=== PATIENT | female | born 1940 | race Caucasian/White ===

== ENCOUNTER 2020-08-02 09:06 | Outpatient (REF) | payer MEDICARE, SELFPAY ==
--- NOTE | ~2020-08-02 | US_ITS ---
EXAMINATION: US ABDOMEN COMPLETE CLINICAL INFORMATION: Progressive right upper quadrant pain and tenderness to palpation. COMPARISON: None. TECHNIQUE: Real-time imaging of the abdominal viscera. FINDINGS: PANCREAS: Slightly thickened pancreas without focal lesion seen. The pancreas slightly heterogenous. ABDOMINAL AORTA: The proximal, mid, and distal segments are normal in caliber. INFERIOR VENA CAVA: Visualized portions are normal. LIVER: There are echogenic lesion in the right hepatic lobe measuring 2.1 x 2.0 x 2.1 cm suggestive of hemangioma. A second echogenic areas seen in the left hepatic lobe measuring 1.4 x 1.0 x 1.0 cm suggestive of a second hemangioma. There is an echogenic calcification the right hepatic lobe. The liver is normal in size. The liver contour is normal. Parenchymal echogenicity is normal. There is no intrahepatic biliary duct dilatation seen. GALLBLADDER: Surgically absent. COMMON BILE DUCT: Normal in caliber measuring 0.82 cm in diameter. RIGHT KIDNEY: There is solid lesion in the upper pole of right kidney measuring 2.7 x 2.2 x 2.0 cm nonvascular question adenoma. No hydronephrosis or renal calculi. The kidney measures 10.1 cm in maximum dimension. LEFT KIDNEY: There is anechoic cyst in upper/midpole measuring 2.1 x 2.4 x 2.1 cm. No additional lesions seen. No hydronephrosis or renal calculi. The kidney measures 10.4 cm in maximum dimension. SPLEEN: The spleen measures 12.2 cm in maximum dimension. FREE FLUID: None. US/US abdomen complete IMPRESSION: At least 2 hemangiomas in the liver. Bilateral renal cysts. Likely right adrenal 2.7 cm adenoma along the superior pole of right kidney. Heterogenous pancreas is mildly enlarged. The rest of the abdominal ultrasound is unremarkable.
== END 2020-08-02 09:07 | disposition home or self-care (01) ==
LOC: HO.HMGCX 09:06
PROVIDERS: PCP Internal Medicine; Visit Provider Internal Medicine
DX: R10.811 Right upper quadrant abdominal tenderness (principal)
CPT/HCPCS: 76700

== ENCOUNTER 2021-09-05 16:37 | Outpatient (REF) | payer OTHER, SELFPAY ==
--- NOTE | ~2021-09-05 | XR_ITS ---
EXAMINATION: XR BILATERAL KNEES. CLINICAL INFORMATION: Bilateral knee pain. COMPARISON: None. TECHNIQUE: 4 views each knee. FINDINGS: RIGHT KNEE: There is mild loss of tricompartmental joint space with periarticular spurring in the medial and patellofemoral compartments. No bony erosive changes seen. There is no abnormal joint effusion or loose bodies. The soft tissues are normal. LEFT KNEE: There is mild loss of medial and lateral compartment joint space with moderate periarticular spurring in the lateral and patellofemoral compartments. No acute fracture, loose bodies or soft tissue swelling is seen. XR/XR knee RT 2V IMPRESSION: Degenerative arthritic changes in the tricompartments of both knees without any acute fracture, loose bodies or joint effusion.
--- NOTE | ~2021-09-05 | XR_ITS ---
EXAMINATION: XR BILATERAL KNEES. CLINICAL INFORMATION: Bilateral knee pain. COMPARISON: None. TECHNIQUE: 4 views each knee. FINDINGS: RIGHT KNEE: There is mild loss of tricompartmental joint space with periarticular spurring in the medial and patellofemoral compartments. No bony erosive changes seen. There is no abnormal joint effusion or loose bodies. The soft tissues are normal. LEFT KNEE: There is mild loss of medial and lateral compartment joint space with moderate periarticular spurring in the lateral and patellofemoral compartments. No acute fracture, loose bodies or soft tissue swelling is seen. XR/XR knee LT 2V IMPRESSION: Degenerative arthritic changes in the tricompartments of both knees without any acute fracture, loose bodies or joint effusion.
== END 2021-09-05 16:38 | disposition home or self-care (01) ==
LOC: HO.XRAY 16:37
PROVIDERS: PCP Internal Medicine; Visit Provider Psychiatry & Neurology Neurology
DX: M25.561 Pain in right knee (principal); M25.562 Pain in left knee
CPT/HCPCS: 73560

== ENCOUNTER → 2024-03-25 16:35 | Outpatient (BNV) | payer OTHER, SELFPAY | PROVIDERS: PCP Internal Medicine; Visit Provider Radiology Diagnostic Radiology | DX: K59.00 Constipation, unspecified (principal); R10.9 Unspecified abdominal pain | CPT/HCPCS: 71046; 74018 ==

== ENCOUNTER 2025-02-24 10:51 | Outpatient (AMB) | payer OTHER, MEDICAID, SELFPAY ==
--- NOTE | 2025-02-24 11:09 | MHC.OFFVIS ---
Intake Visit Reasons: 6 MONTH F/U HPI Comments Details: 84 y/o woman with fibromyalgia syndrome, left sided facial pain, arthritis, depression, RLS, and peripheral neuropathy. She is presenting for worsening left-sided facial pain. The pain is significant enough that it affects activities such as washing her face. She was previously treated with gabapentin, which was discontinued due to causing ankle swelling. The patient also has a history of severe sleep apnea, confirmed by a recent overnight sleep study. She struggles with insomnia, often remaining awake until 3:00 a.m. or through the entire night, and has difficulty using a CPAP mask. Her other chronic conditions include restless leg syndrome, treated with ropinirole, and generalized body pain, managed with duloxetine. She has a past history of depression for which she is not currently medicated. Review of Systems Narrative - Neurological: Reports left-sided facial pain, which is worse when washing her face. - Reports restless leg syndrome. - Musculoskeletal: Reports generalized body pain. - Psychiatric: Reports significant insomnia, having a hard time sleeping and sometimes staying awake all night. - Allergic/Immunologic: Reports ankle swelling with previous use of gabapentin. Physical Exam Neuro Other: Mental Status: Alert and oriented to person, place, and time. Normal attention. Normal spontaneous speech, fluency, and comprehension. Cranial Nerves: CN II: Visual obregon full to confrontation, visual acuity intact. CN III, IV, : Pupils equal, round, reactive to light and accommodation. Extraocular movements are normal. CN V: Facial sensation is normal. CN VII: Facial movements symmetrical. CN VIII: Hearing intact to bedside conversation is normal. CN IX, X: Palate elevates symmetrically. CN XI: Shoulder shrug and head turn symmetrical. CN XII: Tongue midline without atrophy or fasciculations. Extrapyramidal: Full facial expressions and blinking. No rigidity. Movements are appropriate with no tremor or abnormality. Speech: Normal; no dysarthria or tremor. Assessment & Plan Assessment & Plan (1) Fibromyalgia: Comment: NCV/EMG RT UE: Mild chronic right mid cervical radiculopathy. NCV/EMG LE 04/26/15 MODERATE TO SEVERE AXONAL PERIPHERAL NEUROPATHY. Code(s): M79.7 - Fibromyalgia Category: Medical (2) RLS (restless legs syndrome): Code(s): G25.81 - Restless legs syndrome Category: Medical (3) Insomnia: Code(s): G47.00 - Insomnia, unspecified Category: Medical Qualifiers: Insomnia type: due to medical condition Qualified Code(s): G47.01 - Insomnia due to medical condition (4) Trigeminal neuralgia of left side of face: Code(s): G50.0 - Trigeminal neuralgia Category: Medical Plan Impression: 1. Fibromyalgia 2. Left trigeminal neuralgia 3. Peripheral neuropathy and associated discomfort 4. Restless legs syndrome 5. Chronic insomnia 6. Depression 7. TATIANA Recommendations: 1. Duloxetine 30 mg 1 twice a day for fibromyalgia 2. Oxcarbazepine 150 mg 1-2 a day for facial pain 3. Ropinirole 0.25 mg 1 at bedtime for RLS 4. Mirtazapine 15 mg 1 at bedtime for Insomnia 5. TATIANA was treated at [facility] I have prescribed oxcarbazepine for the patient's facial pain. I advised her to start with one tablet at night and explained that the dose can be increased to twice daily if her pain does not improve. I counseled her and her caregiver that a potential side effect of this new medication is dizziness. We reviewed her current medications, and I confirmed we will continue duloxetine for body pain, ropinirole for restless leg syndrome, and mirtazapine for sleep. I informed them that I sent 6-month refills for these medications to [facility] pharmacy. Medications: New ropinirole administer 1-3 hours before bedtime 0.25 mg PO BEDTIME 90 tabs 1RF oxcarbazepine 150 mg PO BID 180 tabs 1RF mirtazapine 15 mg PO BEDTIME 90 tabs 1RF Refilled duloxetine 20 mg PO BID 180 caps 1RF Discontinued gabapentin Discontinued Reason: Entered in error 300 mg orally once or twice a day as needed; 180 caps 0RF Coding Level of Care Code Est Pt Level 4 (60990) Diagnoses Fibromyalgia M79.7 RLS (restless legs syndrome) G25.81 Insomnia due to medical condition G47.01 Insomnia type: due to medical condition Trigeminal neuralgia of left side of face G50.0
--- OUTSIDE RECORDS SUMMARY | 2025-02-24 14:43 | XMS_ITS | Clinical Summary ---
Author Organization [facility] Address [address] [place] [id number] Phone Care Team Providers Care Undercover Agent Name Role Phone VietkatyaanirudhBlayne rausch Primary Care Provider Allergies No known active allergies Medications venlafaxine (EFFEXOR-XR) 150 MG 24 hr capsule Take 150 mg by mouth daily. 04/01/2021 Active rOPINIRole (REQUIP) 0.25 MG tablet Take 0.25 mg by mouth nightly at bedtime as needed. 01/19/2021 Active polyethylene glycol (MIRALAX) 17 gram/dose powder Take 17 g by mouth daily. 03/20/2021 Active omeprazole (PRILOSEC) 20 MG capsule Take 20 mg by mouth 2 (two) times a day. 04/01/2021 Active meloxicam (MOBIC) 15 MG tablet Take 15 mg by mouth daily. 01/25/2021 Active LINZESS 72 mcg capsule Take 72 mcg by mouth daily. 01/27/2021 Active levothyroxine (SYNTHROID, LEVOTHROID) 100 MCG tablet Take 100 mcg by mouth daily. 02/27/2021 Active ergocalciferol (DRISDOL) 50,000 unit capsule Take 1 capsule by mouth once a week. 03/06/2021 Active RESTASIS 0.05 % suspension Place 1 drop into each eye 2 (two) times a day. 01/13/2021 Active calcium citrate-vitamin D3 315 mg-6.25 mcg (250 unit) per tablet Take 1 tablet by mouth 2 (two) times a day. 03/14/2021 Active multivit-min/ir on/folic/lutein (MULTIVITAMIN WOMEN 50 PLUS ORAL) Take 1 capsule by mouth daily. 01/10/2021 Active sodium chloride 0.9% SolP 110 mL with zoledronic acid 4 mg/5 mL Soln 5 mgIndications:f irst reclast infusion on 09/18/23 Inject 5 mg into the vein Once a year. Indications: first reclast infusion on 09/18/23 09/18/2023 Active Active Problems Problem Noted Date Diagnosed Date Osteoporosis 02/21/2021 Social History Tobacco Use Types Packs/Day Years Used Date Smoking Tobacco: Never Smokeless Tobacco: Never Alcohol Use Standard Drinks/Week Comments Never 0 (1 standard drink = 0.6 oz pur e alcohol) Education Answer Date Recorded Are you interested in more education? Not on stefan e 06/24/2022 Are you concerned about learning? Not on file 06/24/2022 No 06/24/2022 No 06/24/2022 Digital Access Answer Date Recorded No 07/25/2022 No 07/25/2022 Reliable internet access at home? Not on file 07/25/2022 Device with a working camera? Not on file Comments Unknown Sex and Gender Information Value Date Recorded Sex Assigned at Not on file Legal Sex Female 1:21 PM EST Gender Identity Not on file Sexual Orientation Not on file Last Filed Vital Signs Vital Sign Reading Time Taken Comments Blood Pressure 112/70 09/18/2023 12:45 PM EDT Pulse 73 09/18/2023 12:45 PM EDT Temperature 36.1 C (96.9 F) 09/18/2023 11:40 AM EDT Respiratory Rate 16 04/04/2021 10:55 AM EST Oxygen Saturation 98% 09/18/2023 12:45 PM EDT Inhaled Oxygen Concentration - - Weight 83.5 kg (184 lb) 04/04/2021 10:55 AM EST Height 157.5 cm (5' 2 ) 04/04/2021 10:55 AM EST Body Mass Index 33.65 04/04/2021 10:55 AM EST Plan of Treatment Health Maintenance Due Date Last Done Comments Adult Td,Tdap Booster 1940 TSH LEVEL 1940 DEPRESSION SCREENING 1952 PNEUMOCOCCAL VACCINES (50+ years) (1 of 1 - PCV) 1990 OSTEOPOROSIS SCREENING INITIAL (ONE-TIME) 2005 RSV VACCINE (1 - 1-dose 75+ series) 06/13/2015 INFLUENZA VACCINE (#1) 2024 , 12/11/2021, 11/12/2020 COVID-19 VACCINE (6 - 2024- season) 2024 12/04/2022, 06/18/2021, 11/22/2020, Additional history exists ZOSTER VACCINES Completed 04/30/2022, 12/17/2021 HEPATITIS A VACCINES Aged Out No long er eligible based on patient's age to complete this topic HIB VACCINES Aged Out No longer eligi ble based on patient's age to complete this topic MENINGOCOCCAL VACCINES (ACWY) Aged Out No longer eligible based on patient's age to complete this topic MENINGOCOCCAL VACCINES (B) Aged Out N o longer eligible based on patient's age to complete this topic Medical Devices Not on file Insurance MEDICARE REPLACEMENT MEDICARE PART A & B MEDICARE REPLACEMENT MEDICARE PART A & B [facility] MEDICARE REPLACEMENT MEDICARE PART A & B MEDICARE REPLACEMENT MEDICARE PART A & B MEDICARE REPLACEMENT MEDICARE PART A & B MEDICARE REPLACEMENT MEDICARE PART A & B MEDICARE REPLACEMENT MEDICARE PART A & [place] [address] [place] [address] MEDICARE REPLACEMENT MEDICARE PART A & B [facility] MEDICARE REPLACEMENT MEDICARE PART A & B Care Teams Undercover Agent Relationship Specialty Start Date End Date Blayne Whitaker DO [address] [place] [id number] PCP - General 02/28/21 Additional Source Comments The information contained in this document represents components of the legal health record. It is not the complete legal health record.[facility]
--- OUTSIDE RECORDS SUMMARY | 2025-02-24 14:43 | XMS_ITS | Encounter Summary ---
Author Organization [facility] Address [address] [facility] [address] [place] [phone] Phone Care Team Providers Care Turning Sander Tender Name Role Phone Blayne Whitaker DO Primary Care Provider [phone] Encounter Details Date Type Department Care Team (Late st Contact Info) Description 09/18/2023 Ancillary Orders [facility], X-Ray - [address] [address] Blayne Whitaker DO [address] [facility] [address] [place] [address] Pain of right heel (Primary Dx) Social History Tobacco Use Types Packs/Day Years [...] on file Sexual Orientation Not on file documented as of this encounter Plan of Treatment Not on file documented as of this encounter Results * XR Calcaneus 2 or More Views (Right) (09/18/2023 1:24 PM EDT) Anatomical Region Laterality Modality Ankle Right, Foot Right Computed Radiography 09/18/2023 4:20 PM EDT Impressions 09/18/2023 4:20 PM EDT Moderate plantar calcaneal spur and tiny dorsal calcaneal enthesophyte. Mild degenerative changes of the subtalar joint and talonavicular joint, and to a lesser degree within the midfoot. No visualized acute, displaced fracture or specific evidence of stress fracture. Narrative 09/18/2023 4:20 PM EDT XR CALCANEUS 2 OR MORE VIEWS (RIGHT) Referring clinician's provided indication for this examination in [facility]: Pain COMPARISON: None Procedure Note Joel Silva MD - 09/18/2023 XR CALCANEUS 2 OR MORE VIEWS (RIGHT) Referring clinician's provided indication for this examination in [facility]:Pain COMPARISON: None IMPRESSION: Moderate plantar calcaneal spur and tiny dorsal calcaneal enthesophyte.Mild degenerative changes of the subtalar joint and talonavicular joint,and to a lesser degree within the midfoot. No visualized acute, displacedfracture or specific evidence of stress fracture. Blayne Whitaker DO IMG XR LOWER EXTREMITY Final Result documented in this encounter Visit Diagnoses Diagnosis Pain of right heel- Primary Pain of right heel documented in this encounter Care Teams Turning Sander Tender Relationship Specialty Start Date End Date Blayne Whitaker DO [address] [place] [address] [address] [place] [address] PCP - General 02/28/21 documented as of this encounter Additional Source Comments The information contained in this document represents components of the legal health record. It is not the complete legal health record.[facility]
--- OUTSIDE RECORDS SUMMARY | 2025-02-24 14:43 | XMS_ITS ---
Author Name Zohaib RITCHIE, MRS. Salter Address [address] [place] [address] Phone [phone] [facility][note 3][facility] Care Team Providers Care Shoe Stainer Name Role Phone Joie Penny Unavailable [phone] Yoselin Merrill Unavailable [phone] Cody Barnett Unavailable [phone] ROOSEVELT VAUGHN Unavailable [phone] LILIAN RAMIREZ Unavailable [phone] Blayne Whitaker Unavailable [phone] Reason for Referral Not Available Allergies, adverse reactions, alerts No known allergies History of medication use Medication Class Instructions Start Date End Date Omeprazole 20 mg Cap delayed rel TAKE 1 CAPSULE BY MOUTH TWICE DAILY 2021-06-27 No Data Available Linzess 145 MCG Cap TAKE 1 CAPSULE BY MO UTH EVERY DAY 2021-06-06 No Data Available Venlafaxine ER 150 mg Cap ER 24hr TAKE 1 CAPSULE BY MOUTH EVERY DAY WITH FOOD 2021-07-07 No Data Available CALCIUM CITRATED3 TABLETS TAKE 1 TABLET BY MOUTH TWICE DAILY 2020-11-30 No Data Available MULTIVITAMIN WOMEN 50+ TABLETS TAKE 1 TABLET BY MOUTH DAILY 2021-03-14 No Data Available Polyethylene Glycol 3350 17 GM/SCOOP Powder DISSOLVE 17 GM INTO WATER OR JUICE AMD DRINK DAILY 2021-04-19 No Data Available Simvastatin 5 mg Tab TAKE 1 TABLET BY MO UTH EVERY DAY 2021-07-14 No Data Available Levothyroxine Sodium 100 MCG Tab TAKE 1 TABLET BY MOUTH DAILY 2021-02-28 No Data Available rOPINIRole 0.25 mg Tab TAKE 1 TABLET BY MOUTH AT BEDTIME NEEDED 2021-05-26 No Data Available Vitamin D (Ergocalciferol) 1.25 mg (50494 UT) Cap TAKE 1 CAPSULE BY MOUTH 1 TIME A WEEK 2020-09-30 No Data Available Eliquis 5 mg Tab TAKE 1 TABLET BY TAMEKA TH TWICE DAILY 2021-11-05 No Data Available Acetaminophen 500 mg Tab 2 tablets orall y TID PRN arthritis pain 2021-12-15 No Data Available Sucralfate 1 GM Tab 1 tablet once daily 2021-12-15 N o Data Available Amoxicillin 500 mg Tab TAKE 1 TABLET BY MOUTH THREE TIMES DAILY UNTIL ALL TAKEN 2022-07-25 No Data Available Clindamycin 150 mg Cap TAKE ONE CAPSULE BY MOUTH FOUR TIMES DAILY UNTIL FINISHED 2022-07-29 No Data Available oxyCODONE 5 mg Tab TAKE 1 TABLET BY TAMEKA TH EVERY 4 HOURS FOR 7 DAYS NEEDED FOR PAIN 2022-08-17 No Data Available tiZANidine 2 mg Tab TAKE 1 TABLET BY TAMEKA TH EVERY 8 HOURS NEEDED FOR MUSCLE SPASM 2022-08-17 No Data Available Diclofenac Sodium 1 % Gel 4 grams topica lly to affected area 4 times per day PRN 2023-04-05 No Data Available Metoprolol Succinate ER 25 m g Tab ER 24hr TAKE 1 TABLET BY MOUTH DAILY 2023-05-15 No Data Available Furosemide 20 mg Tab TAKE 1 TABLET BY MO UTH DAILY 2023-08-16 No Data Available Mirtazapine 15 mg Tab TAKE 1 TABLET BY M OUTH EVERY NIGHT AT BEDTIME 2023-11-06 No Data Available DULoxetine 30 mg Cap delayed rel TAKE 1 CAPSULE BY MOUTH TWICE DAILY 2023-11-06 2023-12-24 DULoxetine 30 mg Cap delayed rel TAKE 1 CAPSULE BY MOUTH TWICE DAILY 2024-02-25 No Data Available Xiidra 5 % Solution INSTILL 1 DROP IN PANKAJ TH EYES TWICE DAILY 2024-02-04 No Data Available Bisacodyl EC 5 mg Tab delaye d rel TAKE 2 TABLETS BY MOUTH DAILY NEEDED FOR CONSTIPATION 2024-09-04 No Data Available Cetirizine 10 mg Tab TAKE 1 TABLET BY MO UTH DAILY 2024-10-28 No Data Available Problem List Problem Status Onset Date Resolved Date Synopsis Age related osteoporosis, History of vertebral fracture repair Active 2021-12-15 N/A On Calcium. Cont inue medications as directed. Has PT/OT sessions twice a week. Encouraged diet and weight management. Increase physical activities as tolerated. Maintain safety and fall precautions. Follow up with orthopedic/spine as indicated. IBS (irritable bowel syndrome) Active 2021-12-15 N/A On Linzess, Katja laxf/u with pcp annually Hyperlipidemia Active 2021-12-15 N/A Continue s tatinroutine Lipid panelExercise several days per week, if you can. Eat a diet lower in saturated and trans fats. Include lots of fruits, vegetables, beans, nuts, whole grains, and fish regularly into your diet.Follow up with PCP annually Osteoarthritis Active 2021-12-15 N/A On Tylenol f/u with pcp annually Thoracic aortic aneurysm Active 2022-09-30 N/A Managed with simvastatin. Continue medications as directed. Encouraged diet and weight management. Increase physical activities as tolerated. Maintain safety and fall precautions. Follow up with PCP/acupressurist as indicated. Restless leg, Other secondary parkinsonism, Neuropathy involving both lower extremities Active 2021-12-15 N/A Managed with r opinirole, gabapentin. Continue medications as directed. Encouraged diet and weight management. Increase physical activities as tolerated. Maintain safety and fall precautions. Follow up with neurologist as indicated. Hypercoagulability due to atrial fibrillation Active 2021-12-15 N/A On Eliquis.D iscussed drug-drug interaction with Venlafaxine.To avoid NSAIDS- which may increase the risk of bleeding.f/u with pcp annually Hypothyroidism Active 2021-12-15 N/A continue l evothyroxine, fasting, no food or medicine for half hour after intakeannual thyroid panelf/u with pcp annually GERD (gastroesophageal reflux disease) Active 2021-12-15 N/A On Omeprazole, Sucralfateavoid NSAIDscontinue low caffeine intake, low acidic food intake and eating hygiene (not eating past 6p at night, not laying down immediately after meals)Avoid foods that trigger GERD (acidic food, spicy food, fatty foods, caffeine, chocolate)f/u with PCP as needed and as scheduled Recurrent mild major depressive disorder with anxiety Active 2021-12-15 N/A PHQ-9 Managed wi gabapentin, venlafaxine. Continue medications as directed. Encouraged relaxation, deep breathing, and reassurance techniques as needed. Increase physical activities as tolerated. Maintain safety and fall precautions. Follow up with PCP as indicated. Other problems related to medical facilities and other health care Active 2023-04-11 N/A CONTINGENCY PLANUpdated 12/26/23Marcyer to call for the following symptoms: Fall / Dizziness upon standing / Feeling of room spinning Planned intervention: Encourage extra fluid intake / Assess for change in mental status and provide reassurance if none (patient's Baseline is _) / Review importance of sitting for two to three minutes prior to standing after laying down Encounters Encounters Type Facility Date of Service Diagnosis/Co mplaint Medication List Documented (1159F) [facility] [place] Medication List Documented (1159F) [facility] [place] Medication List Documented (1159F) [facility] [place] Medication List Documented (1159F) [facility] [place] Medication List Documented (1159F) [facility] [place] Medication List Documented (1159F) [facility] [place] Medication List Documented (1159F) [facility] [place] Medication List Documented (1159F) [facility] [place] Medication List Documented (1159F) [facility] [place]20[place] Major depressv disord, singl e epsd, sev w/o psych featuresAge-rel osteopor w current path fracture, vertebra(e), initHypothyroidism, unspecifiedGastro-esophageal reflux disease without esophagitisIrritable bowel syndrome without diarrheaHyperlipidemia, unspecifiedRestless legs syndromeUnspecified osteoarthritis, unspecified sitePolyneuropathy, unspecifiedOther thrombophiliaUnspecified atrial fibrillation Estab. patient 30-39min; chronic exacerbation, 2 stable chronic or 1 acute illness add add modifier 95 for video, (do not use for phone, instead use [id number]) [facility] [place]2022 Unspecified atrial fibrillationOther thrombophiliaMajor depressive disorder, recurrent, mildThoracic aortic aneurysm, without rupture, unspecifiedOther secondary parkinsonismAnxiety disorder, unspecifiedAge-related osteoporosis without current pathological fractureHypothyroidism, unspecifiedGastro-esophageal reflux disease without esophagitisIrritable bowel syndrome without diarrheaHyperlipidemia, unspecifiedRestless legs syndromeUnspecified mononeuropathy of bilateral lower limbsUnspecified osteoarthritis, unspecified sitePersonal history of (healed) traumatic fractureOther specified postprocedural states Estab. patient 30-39min; chronic exacerbation, 2 stable chronic or 1 acute illness add add modifier 95 for video, (do not use for phone, instead use [id number]) [facility] [place] Estab. patient 30-39min; chronic exacerbation, 2 stable chronic or 1 acute illness add add modifier 95 for video, (do not use for phone, instead use 70918-29) [facility] [place] Estab. patient 30-39min; chronic exacerbation, 2 stable chronic or 1 acute illness add add modifier 95 for video, (do not use for phone, instead use [id number]) [facility] [place] Estab. patient 30-39min; chronic exacerbation, 2 stable chronic or 1 acute illness add add modifier 95 for video, (do not use for phone, instead use 27602-01) [facility] [place] Estab. patient 30-39min; chronic exacerbation, 2 stable chronic or 1 acute illness add add modifier 95 for video, (do not use for phone, instead use 73299-33) [facility] [place] Estab. patient 30-39min; chronic exacerbation, 2 stable chronic or 1 acute illness add add modifier 95 for video, (do not use for phone, instead use 93911-84) [facility] [place] Estab. patient 30-39min; chronic exacerbation, 2 stable chronic or 1 acute illness add add modifier 95 for video, (do not use for phone, instead use 60471-92) [facility] [place] Estab. patient 30-39min; chronic exacerbation, 2 stable chronic or 1 acute illness add add modifier 95 for video, (do not use for phone, instead use 16678-17) [facility] [place] Estab. patient 30-39min; chronic exacerbation, 2 stable chronic or 1 acute illness add add modifier 95 for video, (do not use for phone, instead use 84499-70) [facility] [place] Estab. patient 30-39min; chronic exacerbation, 2 stable chronic or 1 acute illness add add modifier 95 for video, (do not use for phone, instead use 92783-99) [facility] [place] Estab. patient 30-39min; chronic exacerbation, 2 stable chronic or 1 acute illness add add modifier 95 for video, (do not use for phone, instead use 72385-45) [facility] [place]2023 Age-related osteoporosis wit hout current pathological fractureOther specified postprocedural statesPersonal history of (healed) traumatic fractureHypothyroidism, unspecifiedHyperlipidemia, unspecifiedRestless legs syndromeOther secondary parkinsonismUnspecified mononeuropathy of bilateral lower limbsUnspecified osteoarthritis, unspecified siteOther thrombophiliaUnspecified atrial fibrillationMajor depressive disorder, recurrent, mildAnxiety disorder, unspecifiedGastro-esophageal reflux disease without esophagitisIrritable bowel syndrome without diarrheaThoracic aortic aneurysm, without rupture, unspecifiedOther problems related to medical facilities and other health care Estab. patient 30-39min; chronic exacerbation, 2 stable chronic or 1 acute illness add add modifier 95 for video, (do not use for phone, instead use 53482-86) [facility] [place] Estab. patient 30-39min; chronic exacerbation, 2 stable chronic or 1 acute illness add add modifier 95 for video, (do not use for phone, instead use 27910-90) [facility] [place]20[place] Estab. patient 30-39min; chronic exacerbation, 2 stable chronic or 1 acute illness add add modifier 95 for video, (do not use for phone, instead use 14564-67) [facility] [place]20[place] Estab. patient 30-39min; chronic exacerbation, 2 stable chronic or 1 acute illness add add modifier 95 for video, (do not use for phone, instead use 66197-10) [facility] [place] Estab. patient 30-39min; chronic exacerbation, 2 stable chronic or 1 acute illness add add modifier 95 for video, (do not use for phone, instead use 77976-87) [facility] [place] Estab. patient 30-39min; chronic exacerbation, 2 stable chronic or 1 acute illness add add modifier 95 for video, (do not use for phone, instead use 10398-62) [facility] [place] Estab. patient 30-39min; chronic exacerbation, 2 stable chronic or 1 acute illness add add modifier 95 for video, (do not use for phone, instead use 65654-35) [facility] [place] No Data Available [facility] [place] Other thrombophiliaUnspecifi ed atrial fibrillationMajor depressive disorder, recurrent, mildThoracic aortic aneurysm, without rupture, unspecifiedOther secondary parkinsonismAnxiety disorder, unspecifiedAge-related osteoporosis without current pathological fractureOther specified postprocedural statesPersonal history of (healed) traumatic fractureHypothyroidism, unspecifiedOther problems related to medical facilities and other health careGastro-esophageal reflux disease without esophagitisIrritable bowel syndrome without diarrheaHyperlipidemia, unspecifiedRestless legs syndromeUnspecified mononeuropathy of bilateral lower limbsUnspecified osteoarthritis, unspecified site No Data Available [facility] [place] No Data Available [facility] [place] No Data Available [facility] [place] No Data Available [facility] [place] Estab. patient 10-29min; 1 minor problem; add add modifier 95 for video, modifier 93 for phone [facility] [place]2024 Other thrombophiliaUpecifi ed atrial fibrillationOther problems related to medical facilities and other health careMajor depressive disorder, recurrent, mildAnxiety disorder, unspecifiedAge-related osteoporosis without current pathological fractureOther specified postprocedural statesPersonal history of (healed) traumatic fractureHypothyroidism, unspecifiedGastro-esophageal reflux disease without esophagitisIrritable bowel syndrome without diarrheaHyperlipidemia, unspecifiedOther secondary parkinsonismLong term (current) use of anticoagulantsUnspecified mononeuropathy of bilateral lower limbsUnspecified osteoarthritis, unspecified siteThoracic aortic aneurysm, without rupture, unspecified Estab. patient 10-29min; 1 minor problem; add add modifier 95 for video, modifier 93 for [facility] Estab. patient 10-29min; 1 minor problem; add add modifier 95 for video, modifier 93 for phone [facility] Estab. patient 10-29min; 1 minor problem; add add modifier 95 for video, modifier 93 for phone [facility] Estab. patient 10-29min; 1 minor problem; add add modifier 95 for video, modifier 93 for phone [facility] [place] Estab. patient 10-29min; 1 minor problem; add add modifier 95 for video, modifier 93 for phone [facility] [place] Estab. patient 10-29min; 1 minor problem; add add modifier 95 for video, modifier 93 for phone [facility] [place] Vital Signs Date of Collection Vitals 2021-12-15 10:14:43 Height - 167.64 cmWe ight - 80.74 kgBody Mass Index (BMI) - 28.73 kg/m2BP Diastolic - 81.0 mm[Hg]BP Systolic - 123.0 mm[Hg] 2022-09-30 10:02:26 Weight - 81.65 kgBod y Mass Index (BMI) - 29.05 kg/m2BP Diastolic - 62.0 mm[Hg]BP Systolic - 101.0 mm[Hg]Pain Scale - 7.0 {score} 2023-04-05 07:15:19 Height - 157.48 cmWe ight - 83.92 kgBody Mass Index (BMI) - 33.84 kg/m2Pain Scale - 5.0 {score} 2024-11-15 13:34:50 Height - 162.56 cmWe ight - 90.72 kgBody Mass Index (BMI) - 34.33 kg/m2Pain Scale - 6.0 {score} Social History Social History Social History Observation Description Effec tive Time Current Smoking Status Never smoker 2025-01-28 0 Sex Female Gender identity Woman History of Procedures Procedures Service Procedure code Service date Servicing provider Phone# Medication List Documented (1159F) 1159F 2021-12-15 No Data Available No Data Vilma ilable Medication Review by prescribing provider or pharmacist documented (1160F) 1160F 2021-12-15 No Data Available No Data Vilma ilable Functional Status Assessed (1170F) 1170F 2021-12-15 No Data Available No Data Avail able Advance Care Directive Advance care planning discussion documented in the medical record (1158F) 1158F 2021-12-15 No Data Available No Data Availa ble BMI obtained (3008F) 3008F 2021-12-15 No Data Availab le No Data Available SBP < 130 (3074F) 3074F 2021-12-15 No Data Available No Data Available DBP 80-89 (3079F) 3079F 2021-12-15 No Data Available No Data Available Pain Assessment - Pain Documented on a Pain Scale (1125F) 1125F 2021-12-15 No Data Available No Data Vilma ilable New patient, 30-44min 1 stable chronic or 2 minor; add modifier 95 for video, modifier 93 for phone 40099 2021-12-15 No Data Available No Data Available Estab. patient 30-39min; chronic exacerbation, 2 stable chronic or 1 acute illness add add modifier 95 for video, (do not use for phone, instead use 11744-74) 24572 2022-09-30 No Data Available No Data Availa ble Advance care planning discussed and documented advance care plan or surrogate decision-maker was documented in the medical record. (1123F) 1123F 2022-09-30 No Data Available No Data Availa ble Functional Status Assessed (1170F) 1170F 2022-09-30 No Data Available No Data Avail able Medication List Documented (1159F) 1159F 2022-09-30 No Data Available No Data Vilma ilable Medication Review by prescribing provider or pharmacist documented (1160F) 1160F 2022-09-30 No Data Available No Data Vilma ilable Pain Assessment - Pain Documented on a Pain Scale (1125F) 1125F 2022-09-30 No Data Available No Data Vilma ilable BMI obtained (3008F) 3008F 2022-09-30 No Data Availab le No Data Available Advance Care Directive Advance care planning discussion documented in the medical record (1158F) 1158F 2022-09-30 No Data Available No Data Availa ble SBP < 130 (3074F) 3074F 2022-09-30 No Data Available No Data Available DBP <80 (3078F) 3078F 2022-09-30 No Data Available No Data Available No Data Available G8510 2022-09-30 No Data Available No Data Available Estab. patient 30-39min; chronic exacerbation, 2 stable chronic or 1 acute illness add add modifier 95 for video, (do not use for phone, instead use 92348-51) 08411 2023-04-05 No Data Available No Data Availa ble Medication List Documented (1159F) 1159F 2023-04-05 No Data Available No Data Vilma ilable Medication Review by prescribing provider or pharmacist documented (1160F) 1160F 2023-04-05 No Data Available No Data Vilma ilable BMI obtained (3008F) 3008F 2023-04-05 No Data Availab le No Data Available Advance Care Directive Advance care planning discussion documented in the medical record (1158F) 1158F 2023-04-05 No Data Available No Data Availa ble Advance care planning discussed and documented advance care plan or surrogate decision-maker was documented in the medical record. (1123F) 1123F 2023-04-05 No Data Available No Data Availa ble Pain Assessment - Pain Documented on a Pain Scale (1125F) 1125F 2023-04-05 No Data Available No Data Vilma ilable Functional Status Assessed (1170F) 1170F 2023-04-05 No Data Available No Data Avail able No Data Available 08944 2023-12-26 No Data Available No Data Available Medication List Documented (1159F) 1159F 2023-12-26 No Data Available No Data Vilma ilable Functional Status Assessed (1170F) 1170F 2023-12-26 No Data Available No Data Avail able Advance Care Directive Advance care planning discussion documented in the medical record (1158F) 1158F 2023-12-26 No Data Available No Data Availa ble Advance care planning discussed and documented advance care plan or surrogate decision-maker was documented in the medical record. (1123F) 1123F 2023-12-26 No Data Available No Data Availa ble Estab. patient 10-29min; 1 minor problem; add add modifier 95 for video, modifier 93 for phone [id number] 2024-11-15 No Data Available No Data Availa ble Medication List Documented (1159F) 1159F 2024-11-15 No Data Available No Data Vilma ilable Medication Review by prescribing provider or pharmacist documented (1160F) 1160F 2024-11-15 No Data Available No Data Vilma ilable Functional Status Assessed (1170F) 1170F 2024-11-15 No Data Available No Data Avail able Advance Care Directive Advance care planning discussion documented in the medical record (1158F) 1158F 2024-11-15 No Data Available No Data Availa ble Advance care planning discussed and documented advance care plan or surrogate decision-maker was documented in the medical record. (1123F) 1123F 2024-11-15 No Data Available No Data Availa ble Pain Assessment - Pain Documented on a Pain Scale (1125F) 1125F 2024-11-15 No Data Available No Data Vilma ilable Functional Status Functional Category Effective Dates Cognition Status: Mild Cognitive Impairm ent 2024-11-15 ADL: Bathing Needs Assistanc e , Dressing Needs Assistance , Eating Independent , Ambulation Needs Assistance , Transferring Needs Assistance and Toileting Independent 2024-11-15 IADL: Medication Needs Frank tance , Meal Prep Needs Assistance , Shopping Needs Assistance , Driving or Public Transport Needs Assistance , Housework Needs Assistance , Finances Needs Assistance 2024-11-15 How many falls within the last 6 months? 0 2024-11-15 Near falls within the last 6 months? 07-05-19 Do you feel unsteady on your feet? No 21-11-19 Do you worry about falling? No 2024-10-28 0 DME used with ambulation: [employer] 2024-11-15 Social Supports - # of Inter actions with Friends/Family in a typical week: 2024-11-15 Mental Status Status Date Cognition Status: Oriented t o Person, Place and Time,Recall 2/3 unrelated words at 3 minutes 2022-09-30 Assessments Date of Service Assessments 2021-12-15 10:14:43 Major depressive dis order, single episode, severe without psychotic featuresAge-related osteoporosis with current pathological fracture, vertebra(e), initial encounter for fractureHypothyroidismGERD (gastroesophageal reflux disease)IBS (irritable bowel syndrome)HyperlipidemiaRestless legOsteoarthritisNeuropathyHypercoagulability due to atrial fibrillation 2022-09-30 10:02:26 Recurrent mild major depressive disorder with anxietyAge related osteoporosis, History of vertebral fracture repairHypothyroidismGERD (gastroesophageal reflux disease)IBS (irritable bowel syndrome)HyperlipidemiaRestless leg, Other secondary parkinsonism, Neuropathy involving both lower extremitiesOsteoarthritisHypercoagulability due to atrial fibrillationThoracic aortic aneurysm 2023-04-05 07:15:19 Recurrent mild major depressive disorder with anxietyAge related osteoporosis, History of vertebral fracture repairHypothyroidismGERD (gastroesophageal reflux disease)IBS (irritable bowel syndrome)HyperlipidemiaRestless leg, Other secondary parkinsonism, Neuropathy involving both lower extremitiesOsteoarthritisHypercoagulability due to atrial fibrillationThoracic aortic aneurysmOther problems related to medical facilities and other health care 2023-12-26 12:12:50 Hypercoagulability d ue to atrial fibrillationOther problems related to medical facilities and other health careRecurrent mild major depressive disorder with anxietyAge related osteoporosis, History of vertebral fracture repairHypothyroidismGERD (gastroesophageal reflux disease)IBS (irritable bowel syndrome)HyperlipidemiaRestless leg, Other secondary parkinsonism, Neuropathy involving both lower extremitiesOsteoarthritisThoracic aortic aneurysm 2024-11-15 13:34:50 Hypercoagulability d ue to atrial fibrillationOther problems related to medical facilities and other health careRecurrent mild major depressive disorder with anxietyAge related osteoporosis, History of vertebral fracture repairHypothyroidismGERD (gastroesophageal reflux disease)IBS (irritable bowel syndrome)HyperlipidemiaRestless leg, Other secondary parkinsonism, Neuropathy involving both lower extremitiesOsteoarthritisThoracic aortic aneurysm Plan of Care Date of Service Plans 2021-12-15 10:14:43 Medication Review by prescribing provider or pharmacist documented (1160F)Medication List Documented (1159F)Functional Status Assessed (1170F)Advance Care Directive Advance care planning discussion documented in the medical record (1158F)BMI obtained (3008F)SBP < 130 (3074F)DBP 80-89 (3079F)Pain Assessment - Pain Documented (1125F)Televideo new patient, 30-44min 1 stable chronic or 2 minor; add modifier 95Continue to see PCP. Follow-up with [facility] as needed for any acute or disease education needs that may arise.On VenlafaxineOn CalciumOn LevothyroxineOn OmeprazoleOn LinzessMiralaxOn SimvastatinOn RopiniroleOn TylenolOn VenlafaxineOn Eliquis.Discussed drug-drug interaction with Venlafaxine.To avoid NSAIDS- which may increase the risk of bleeding. 2022-09-30 10:02:26 Medication Review by prescribing provider or pharmacist documented (1160F)Medication List Documented (1159F)Functional Status Assessed (1170F)Advance Care Directive Advance care planning discussion documented in the medical record (1158F)BMI obtained (3008F)SBP < 130 (3074F)DBP <80 (3078F)Televideo 30-39min; chronic exacerbation, 2 stable chronic or 1 acute illness add modifier 95Advance care planning discussed and documented advance care plan or surrogate decision-maker was documented in the medical record. (1123F)Pain Assessment - Pain Documented (1125F)Continue to see PCP. Follow-up with [facility] as needed for any acute or disease education needs that may arise.PHQ-9 score: 2, BRENNAN-7 score: 8Managed with gabapentin, venlafaxine. Continue medications as directed. Encouraged relaxation, deep breathing, and reassurance techniques as needed. Increase physical activities as tolerated. Maintain safety and fall precautions. Follow up with PCP as indicated.On Calcium. Continue medications as directed. Has PT/OT sessions twice a week. Encouraged diet and weight management. Increase physical activities as tolerated. Maintain safety and fall precautions. Follow up with orthopedic/spine as indicated.On Levothyroxine09/30/22: Stable. Continue medications as directed. Encouraged diet and weight management. Discussed importance of routine labs and physical exams. Increase physical activities as tolerated. Maintain safety and fall precautions. Follow up with PCP as indicated.On Omeprazole, Sucralfate09/30/22: Stable. Continue medications as directed. Encouraged diet and weight management. Avoid spicy/triggering foods. Sit upright for at least 30 mins after all meals. Increase physical activities as tolerated. Maintain safety and fall precautions. Follow up with PCP as indicated.On Linzess, Miralax09/30/22: Stable. Continue medications as directed. Encouraged diet and weight management. Increase physical activities as tolerated. Maintain safety and fall precautions. Follow up with PCP as indicated.On Simvastatin09/30/22: Stable. Continue medications as directed. Encouraged diet and weight management. Increase physical activities as tolerated. Maintain safety and fall precautions. Follow up with PCP/acupressurist as indicated.Managed with ropinirole, gabapentin. Continue medications as directed. Encouraged diet and weight management. Increase physical activities as tolerated. Maintain safety and fall precautions. Follow up with neurologist as indicated.On Tylenol09/30/22: Stable. Continue medications as directed. Encouraged pain management and relaxation techniques as needed. Increase physical activities as tolerated. Maintain safety and fall precautions. Follow up with orthopedic/spine as indicated.On Eliquis.Discussed drug-drug interaction with Venlafaxine.To avoid NSAIDS- which may increase the risk of bleeding.09/30/22: Stable. Continue medications as directed. Encouraged diet and weight management. Increase physical activities as tolerated. Maintain safety and fall precautions. Follow up with PCP/acupressurist as indicated.Managed with simvastatin. Continue medications as directed. Encouraged diet and weight management. Increase physical activities as tolerated. Maintain safety and fall precautions. Follow up with PCP/acupressurist as indicated. 2023-04-05 07:15:19 Medication Review by prescribing provider or pharmacist documented (1160F)Medication List Documented (1159F)Functional Status Assessed (1170F)Advance Care Directive Advance care planning discussion documented in the medical record (1158F)BMI obtained (3008F)Televideo 30-39min; chronic exacerbation, 2 stable chronic or 1 acute illness add modifier 95Advance care planning discussed and documented advance care plan or surrogate decision-maker was documented in the medical record. (1123F)Pain Assessment - NO pain documented (1126F)Continue to see PCP. Follow-up with [facility] as needed for any acute or disease education needs that may arise.PHQ-9 score: 2, BRENNAN-7 score: 8Managed with gabapentin, venlafaxine. Continue medications as directed. Encouraged relaxation, deep breathing, and reassurance techniques as needed. Increase physical activities as tolerated. Maintain safety and fall precautions. Follow up with PCP as indicated.2/8loss 8 years agocontinues gabapentin, Effexordenies SI/HI and AVHph4=6 moderateOn Calcium. Continue medications as directed. Has PT/OT sessions twice a week. Encouraged diet and weight management. Increase physical activities as tolerated. Maintain safety and fall precautions. Follow up with orthopedic/spine as indicated.2/8currently on calciumcont to f/u with her pcpOn Levothyroxine09/30/22: Stable. Continue medications as directed. Encouraged diet and weight management. Discussed importance of routine labs and physical exams. Increase physical activities as tolerated. Maintain safety and fall precautions. Follow up with PCP as indicated.2/8cont with Synthroid disease management discussedcheck thyroid levlslast labs 2 months (per pt normal labs)? night sweatsOn Omeprazole, Sucralfate09/30/22: Stable. Continue medications as directed. Encouraged diet and weight management. Avoid spicy/triggering foods. Sit upright for at least 30 mins after all meals. Increase physical activities as tolerated. Maintain safety and fall precautions. Follow up with PCP as indicated.2/8omeprazoledisease management discussedOn LinSamuel grijalvaalax09/30/22: Stable. Continue medications as directed. Encouraged diet and weight management. Increase physical activities as tolerated. Maintain safety and fall precautions. Follow up with PCP as indicated.2/8no changes to medicationdiscussed high fiber diet and encourage oral fluidsalso in addition fiber suppliments as wellcont to f/u with pcpOn Simvastatin09/30/22: Stable. Continue medications as directed. Encouraged diet and weight management. Increase physical activities as tolerated. Maintain safety and fall precautions. Follow up with PCP/acupressurist as indicated.2/8no changesManaged with ropinirole, gabapentin. Continue medications as directed. Encouraged diet and weight management. Increase physical activities as tolerated. Maintain safety and fall precautions. Follow up with neurologist as indicated.2/8send by neurologist. responds well to medication. no concerns or issuescont to f/u with 6 monthsOn Tylenol09/30/22: Stable. Continue medications as directed. Encouraged pain management and relaxation techniques as needed. Increase physical activities as tolerated. Maintain safety and fall precautions. Follow up with orthopedic/spine as indicated.28cont to take tylenolpain 07/05 shoulder, lbp, painslight relief for painmagniesium oil and voltrandisease managemnt discussedOn Eliquis.Discussed drug-drug interaction with Venlafaxine.To avoid NSAIDS- which may increase the risk of bleeding.09/30/22: Stable. Continue medications as directed. Encouraged diet and weight management. Increase physical activities as tolerated. Maintain safety and fall precautions. Follow up with PCP/acupressurist as indicated.04/05pt states she has some bruising on on hand on her body 2 years off and on.Managed with simvastatin. Continue medications as directed. Encouraged diet and weight management. Increase physical activities as tolerated. Maintain safety and fall precautions. Follow up with PCP/acupressurist as indicated.2/8cont with statincont to f/u with cardiologistdisalem managn discussedCONTINGENCY PLANMember to call for the following symptoms: Fall / Dizziness upon standing / Feeling of room spinning Planned intervention: Encourage extra fluid intake / Assess for change in mental status and provide reassurance if none (patient's Baseline is _) / Review importance of sitting for two to three minutes prior to standing after laying down 2023-12-26 12:12:50 Phone (patient, pare nt, or guardian); 11-20 minutes of medical discussion (no modifier 95)Continue to see PCP. Follow-up with [facility] as needed for any acute or disease education needs that may arise 18/09.On Eliquis.Discussed drug-drug interaction with Venlafaxine.To avoid NSAIDS- which may increase the risk of bleeding.09/30/22: Stable. Continue medications as directed. Encouraged diet and weight management. Increase physical activities as tolerated. Maintain safety and fall precautions. Follow up with PCP/acupressurist as indicated.04/05pt states she has some bruising on on hand on her body 2 years off and on.CONTINGENCY PLANUpdated 12/26/23Member to call for the following symptoms: Fall / Dizziness upon standing / Feeling of room spinning Planned intervention: Encourage extra fluid intake / Assess for change in mental status and provide reassurance if none (patient's Baseline is _) / Review importance of sitting for two to three minutes prior to standing after laying downPHQ-9 score: 2, BRENNAN-7 score: 8Managed with gabapentin, venlafaxine. Continue medications as directed. Encouraged relaxation, deep breathing, and reassurance techniques as needed. Increase physical activities as tolerated. Maintain safety and fall precautions. Follow up with PCP as indicated.2/8loss 8 years agocontinues gabapentin, Effexordenies SI/HI and AVHph4=6 hleegeoj15/30/24: Daughter relays she has been sleep talking, did speak with pharmacist Tres Aldridge, and reviewed medications. Will follow up with prescribing provider. Red flags reviewed.On Calcium. Continue medications as directed. Has PT/OT sessions twice a week. Encouraged diet and weight management. Increase physical activities as tolerated. Maintain safety and fall precautions. Follow up with orthopedic/spine as indicated.2/8currently on calciumcont to f/u with her pcpOn Levothyroxine09/30/22: Stable. Continue medications as directed. Encouraged diet and weight management. Discussed importance of routine labs and physical exams. Increase physical activities as tolerated. Maintain safety and fall precautions. Follow up with PCP as indicated.2/8cont with Synthroid disease management discussedcheck thyroid levlslast labs 2 months (per pt normal labs)? night sweatsOn Omeprazole, Sucralfate09/30/22: Stable. Continue medications as directed. Encouraged diet and weight management. Avoid spicy/triggering foods. Sit upright for at least 30 mins after all meals. Increase physical activities as tolerated. Maintain safety and fall precautions. Follow up with PCP as indicated.2/8omeprazoledisease management discussedOn Linzesamy, Miralax09/30/22: Stable. Continue medications as directed. Encouraged diet and weight management. Increase physical activities as tolerated. Maintain safety and fall precautions. Follow up with PCP as indicated.2/8no changes to medicationdiscussed high fiber diet and encourage oral fluidsalso in addition fiber suppliments as wellcont to f/u with pcpOn Simvastatin09/30/22: Stable. Continue medications as directed. Encouraged diet and weight management. Increase physical activities as tolerated. Maintain safety and fall precautions. Follow up with PCP/acupressurist as indicated.2/8no changesManaged with ropinirole, gabapentin. Continue medications as directed. Encouraged diet and weight management. Increase physical activities as tolerated. Maintain safety and fall precautions. Follow up with neurologist as indicated.28send by neurologist. responds well to medication. no concerns or issuescont to f/u with 6 monthsOn Tylenol/07/18: Stable. Continue medications as directed. Encouraged pain management and relaxation techniques as needed. Increase physical activities as tolerated. Maintain safety and fall precautions. Follow up with orthopedic/spine as indicated.2/8cont to take tylenolpain 07/05 shoulder, lbp, painslight relief for painmagniesium oil and voltrandisease managemnt discussedManaged with simvastatin. Continue medications as directed. Encouraged diet and weight management. Increase physical activities as tolerated. Maintain safety and fall precautions. Follow up with PCP/acupressurist as indicated.2/8cont with statincont to f/u with cardiologistdisease managmetn discussed 2024-11-15 13:34:50 Medication Review by prescribing provider or pharmacist documented (1160F)Medication List Documented (1159F)Functional Status Assessed (1170F)Advance Care Directive Advance care planning discussion documented in the medical record (1158F)sbdbAdvance care planning discussed and documented advance care plan or surrogate decision-maker was documented in the medical record. (1123F)Estab. patient 20-29min; 1 stable chronic or 2 minor; add add modifier 95 for video, modifier 93 for phonePain Assessment - Pain Documented on a Pain Scale (1125F)Continue to see PCP. [facility] or disease education needs that may arise.On Eliquis.Discussed drug-drug interaction with Venlafaxine.To avoid NSAIDS- which may increase the risk of bleeding.f/u with pcp annuallyCONTINGENCY PLANUpdated 12/26/23Member to call for the following symptoms: Fall / Dizziness upon standing / Feeling of room spinning Planned intervention: Encourage extra fluid intake / Assess for change in mental status and provide reassurance if none (patient's Baseline is _) / Review importance of sitting for two to three minutes prior to standing after laying downPHQ-9 Managed with gabapentin, venlafaxine. Continue medications as directed. Encouraged relaxation, deep breathing, and reassurance techniques as needed. Increase physical activities as tolerated. Maintain safety and fall precautions. Follow up with PCP as indicated.On Calcium. Continue medications as directed. Has PT/OT sessions twice a week. Encouraged diet and weight management. Increase physical activities as tolerated. Maintain safety and fall precautions. Follow up with orthopedic/spine as indicated.continue levothyroxine, fasting, no food or medicine for half hour after intakeannual thyroid panelf/u with pcp annuallyOn Omeprazole, Sucralfateavoid NSAIDscontinue low caffeine intake, low acidic food intake and eating hygiene (not eating past 6p at night, not laying down immediately after meals)Avoid foods that trigger GERD (acidic food, spicy food, fatty foods, caffeine, chocolate)f/u with PCP as needed and as scheduledOn Linvalentine Miralaxf/u with pcp annuallyContinue statinroutine Lipid panelExercise several days per week, if you can. Eat a diet lower in saturated and trans fats. Include lots of fruits, vegetables, beans, nuts, whole grains, and fish regularly into your diet.Follow up with PCP annuallyManaged with ropinirole, gabapentin. Continue medications as directed. Encouraged diet and weight management. Increase physical activities as tolerated. Maintain safety and fall precautions. Follow up with neurologist as indicated.On Tylenolf/u with pcp annuallyManaged with simvastatin. Continue medications as directed. Encouraged diet and weight management. Increase physical activities as tolerated. Maintain safety and fall precautions. Follow up with PCP/acupressurist as indicated. Goals Date Goal 2021-12-15 Remember to 2021-12-15 Call me if 2021-12-15 Keep it up 2022-09-30 Remember to follow u p with PCP and specialists as directed.Call if you have any questions, comments, or concerns.Keep taking your medications as prescribed. 2023-04-05 At least 50% of time spent counseling pt, discussing diagnosis, treatment plan, compliance, and coordinating followup care. Continue taking medications as directed and keep all follow up appointments with established PCP and Specialist Health Concerns Date Concern 2024-11-15 Patient/Guardian agr eed to visit via telehealth. Today, patient has chief complaint of: annual visit.Visit completed via:[x] audio and video; [ ] audio onlyInformed verbal consent was obtained from this patient to communicate and provide care using virtual and other telecommunications tools. This patient has been explained the risks, if any, related to the encounter. I explained that care provided through video or audio communication cannot replace the need for physical examination or an in-person visit for some disorders or urgent problems. 2024-11-15 Concerns for today's visit:No acute concerns or needs.Reviewed allergies, medications, active medical conditions, past medical and surgical history, social history. 2024-11-15 Most recent hospital stay or ER visit:No ER visits or hospitalizations documented in [facility] in last year.Member denies ER visits or hospitalizations in last year.Discussed our goal of helping the member have more days at home rather than in the ER or the hospital. 2024-11-15 Open HEDIS Measures: reviewedNo open measures 2024-11-15 [facility] ConversationAdvance Care Planning ConversationDate of Conversation: 11/15/2024Life Limiting Diagnosis: Diagnosis:Currently on Hospice NoCode Status: YES CPR: Attempt ResuscitationGoals of Care: Yes to CPR and Curative Treatments: Attempt to sustain life by all medically effective meansNutrition goals: Feeding through new or existing surgically placed tube is okDo you have a Durable Power of Cloth Boil Off Machine Operator for Healthcare, or Healthcare Proxy Or Guardianship? Yes, POAIf so, Who? Dtr Shayna is HCPDo you have a written Advance Directive? Has Advance DirectiveOther details of discussion:Today's plan: Advised patient to discuss wishes with [id number] : AD or surrogate was documented in the medical record. 2024-11-15 Recurrent mild major depressive disorder with anxiety
--- OUTSIDE RECORDS SUMMARY | 2025-02-24 14:43 | XMS_ITS | Continuity of Care Document ---
Author Organization [facility] Address [address] [place] [address] Phone [phone] Social History Type Date Description Comments Sex Female Sex Unknown Medical Devices Description No Information Available Encounters Description No Information Available Assessments Description No Information Available Plan of Treatment No Information Available Functional Status Description No Information Available Mental Status Description No Information Available Referrals Description No Information Available
--- OUTSIDE RECORDS SUMMARY | 2025-02-24 14:43 | XMS_ITS ---
Author Name [facility] Organization Unknown History of Medication Use Medication Directions Dispensed Refills Start Date End Date Stat us Acetaminophen 325mg Tablet 10/10/2023 active Acetaminophen 500mg Caplet 10/10/2023 active Diclofenac Sodium 1% Topical Gel 10/10/2023 active Fluticasone Propionate 50mcg/actuation Nasal [place] 10/10/2023 active Lasix 20mg Tablet 10/10/2023 act buck Linzess 145mcg Capsule 10/10/2023 active MultiVitamin 10/10/2023 active Olopatadine Hydrochloride 0.1% Ophthalmic Solution 10/10/2023 active Omeprazole 20mg Delayed-Release Capsule 10/10/2023 a ctive Refresh Plus 0.5% Lubricant Eye Drops 10/10/2023 active Sucralfate 1g Tablet 10/10/2023 active Venlafaxine Hydrochloride 75mg Tablet 10/10/2023 active Allergies Allergen Reaction Severity Comment Documented Date Source Statu s .NO KNOWN DRUG ALLERGIES ENS_POD CRCT Problems Problem Status Onset Date Problem Type Date of Resolution Source Equinus - Short Achilles tendon, RIGHT active 2023-10-10 EncounterDiagnosisAct ENS_PO DCRCT Equinus - Short Achilles tendon, LEFT active 2023-10-10 EncounterDiagnosisAct ENS_PO DCRCT Plantar fasciitis active 2023-10-10 EncounterDiagnosisAct ENS_PO DCRCT Encounters Encounter Type Encounter Reason Primary Diagnosis Location Date [facility] 2023 Care Team Organization Name Specialty Phone Email Start Date End [facility] 10[facility]11/2023 [facility] 10/10/2023 [facility] 09/28/2023 [facility] 09/27/2023
--- OUTSIDE RECORDS SUMMARY | 2025-02-24 14:43 | XMS_ITS | Encounter Summary ---
Author Organization [place] [address] Care Team Providers Care Informatics Developer Name Role Phone Sherman Blayne Primary Care Provider [phone] Encounter Details Date Type Department Care Team (Late Contact Info) Description 12/05/2024 Lab Requisition [facility] - Main Lab 299 [facility] [place] [phone] [facility] [address] [place] [address] Urinary tract infection, site not specified; Hematuria, unspecified Social History Tobacco Use Types Packs/Day Years Used Date Smoking Tobacco: Never Assessed Comments Unknown Sex and Gender Information Value Date Recorded Sex Assigned at Female 03/31/2024 11:15 AM EST Legal Sex Female 10:45 PM EST Gender Identity Female 03/31/2024 11:15 AM EST Sexual Orientation Straight 03/31/2024 11 :15 AM EST documented as of this encounter Plan of Treatment Upcoming Encounters Date Type Department Care Team (Late Contact Info) Description 04/03/2025 3:00 PM EST Office Visit Gastroenterology - [address] [facility] [address] [place] [phone] Marissa Grayson NP 299 [facility] [address] [place] [address] documented as of this encounter Procedures Procedure Name Priority Date/Time Associated Diagnosis Comments URINALYSIS WITH REFLEX MICROSCOPIC Routine 12/05/2024 12:00 AM EDT Urinary tract infection, site not specified Hematuria, unspecified URINALYSIS WITH REFLEX MICROSCOPIC Routine 12/05/2024 12:00 AM EDT Urinary tract infection, site not specified Hematuria, unspecified CULTURE URINE Routine 12/05/2024 12:00 AM EDT Urinary tract infection, site not specified Hematuria, unspecified documented in this encounter Results * (ABNORMAL) Urinalysis with reflex microscopic (12/05/2024 12:00 AM EDT) Specific [place] Urine 1.004 1.003 - 1.030 LAB URINALYSIS - AUTOMATED METHOD 12/05/2024 6:36 PM [facility] LAB pH, Urine 7.0 5.0 - 8.0 pH LAB URINALYSIS - AUTOMATED METHOD 12/05/2024 6:36 PM [facility] Leukocytes, Urine Small(A) Negative LAB URINALYSIS - AUTOMATED METHOD 12/05/2024 6:36 PM [facility] Nitrite, Urine Negative Negative LAB URINALYSIS - AUTOMATED METHOD 12/05/2024 6:36 PM [facility] Protein, Urine Negative <=Trace mg/dL LAB URINALYSIS - AUTOMATED METHOD 12/05/2024 6:36 PM [facility] Glucose, Urine Negative Negative mg/dL LAB URINALYSIS - AUTOMATED METHOD 12/05/2024 6:36 PM [facility] Ketones, Urine Negative Negative mg/dL LAB URINALYSIS - AUTOMATED METHOD 12/05/2024 6:36 PM [facility] Urobilinogen, Urine 0.2 0.2 - 1.0 mg/dL LAB URINALYSIS - AUTOMATED METHOD 12/05/2024 6:36 PM [facility] Bilirubin, Urine Negative Negative LAB URINALYSIS - AUTOMATED METHOD 12/05/2024 6:36 PM EDT [facility] Blood, Urine Negative Negative LAB URINALYSIS - AUTOMATED METHOD 12/05/2024 6:36 PM EDT [facility] RBC, Urine 1.2 0 - 4 /HPF LAB URINALYSIS - AUTOMATED METHOD 12/05/2024 6:36 PM EDT [facility] WBC, Urine 0.7 0 - 4 /HPF LAB URINALYSIS - AUTOMATED METHOD 12/05/2024 6:36 PM EDT [facility] Squamous Epithelial, Urine 11 0 - 60 /LPF LAB URINALYSIS - AUTOMATED METHOD 12/05/2024 6:36 PM EDT [facility] Bacteria, Urine Negative Negative /HPF LAB URINALYSIS - AUTOMATED METHOD 12/05/2024 6:36 PM EDT [facility] Hyaline Casts, Urine 0.78 0 - 3 /LPF LAB URINALYSIS - AUTOMATED METHOD 12/05/2024 6:36 PM EDT [facility] Urine Urine specimen obtained by clean catch procedure / Unknown 12/05/2024 12/05/2024 4:[address] [facility] LAB URINE ORDERABLES Final Resul t Performing Organization Address City/[facility]/ZIP Co de Phone Number [facility] [address] [place] [address], * Culture urine (12/05/2024 12:00 AM EDT) Culture, Urine No growth 12/06/2024 11:09 AM EDT [facility] Urine Urine specimen obtained by clean catch procedure / Unknown 12/05/2024 12/05/2024 4:[address] [facility] LAB MICROBIOLOGY - GENERAL ORDER LENORA Final Result [facility] [address] [place] [address], documented in this encounter Visit Diagnoses Diagnosis Urinary tract infection, site not specified Hematuria, unspecified documented in this encounter Care Teams Informatics Developer Relationship Specialty Start Date End Date Blayne Whitaker DO [address] [place] [phone] PCP - General Internal Medicine 03/21/24 documented as of this encounter
--- OUTSIDE RECORDS SUMMARY | 2025-02-24 14:43 | XMS_ITS | Patient Health Record ---
[facility] Address [address] [place] [address] Care Team Providers Care Tankerman Name Role Phone Marc Mireles MD Primary Care Provider Unav ailable Diane Burch Unavailable [phone] Reason For Referral No Information Medications Medication SIG (Take, Route, Frequency, Duration) Notes Start Date End Date Status Levothyroxine Sodium 100 MCG Orally Active Sertraline HCl Not-T aking Celecoxib Active Doc-Q-Lace Active methylPREDNISolone N ot-Taking Iron Active Multivitamin Women 50+ Not-Taking A Thru Z Advanced Ac tive Polyethylene Glycol 3350 Not-Taking Venlafaxine HCl ER 75 MG Orally Active Cephalexin Not-Takin g Calcium Citrate-Vitamin D Active Simvastatin 5 MG Orally Act buck Aspirin Active Refresh Active Dicyclomine HCl Acti ve Ferrous Sulfate Acti ve Omeprazole Not-Takin g Mirtazapine 15 MG Orally Ac tive Olopatadine HCl Not- Taking Social History Tobacco Use: Social History Observation Description Date Details (start date - stop date) Never Smoker NA - NA Tobacco Use/Smoking Question Answer Notes Are you a: nonsmoker Additional Findings: Tobacco Non-User Current no n-smoker Alcohol Screen Question Answer Notes Did you have a drink containing alcohol in the p ast year? No Points 0 Interpretation Negative Tobacco use other than smoking: Question Answer Notes Are you an other tobacco user? No Problems Problem Type SNOMED Code ICD Code Onset Dates Problem Status W/U Status Risk Notes Problem Acquired hammer toe of right foot (0803621408666 105) Other hammer toe(s) (acquired), right foot (M20.41) Active confirmed Problem Acquired hammer toe of left foot (5439470149436 103) Other hammer toe(s) (acquired), left foot (M20.42) Active confirmed Plan Of Treatment Pending Test Test Name Order Date [id number] NAIL, 6 OR MORE 10/02/2017 [id number] NAIL, 6 OR MORE 12/10/2017 [id number] Plate 10/02/2017 [id number] Plate Each Additional 08/2017 [id number] SKIN LESIONS, 2 TO 4 12/11/19 18 [id number] SKIN LESION 10/02/2017 [id number] OF HEMATOMA/FLUID 018 Insurance Providers Payer Name Payer Address Payer Phone Subscriber Number Group Number Insured Name Patient Relationship to Insured Coverage Start Date Coverage End Date [facility]-[address] [address] [address] [place] [phone] [id number] Kim Brown Self - patient is the insured Medical (General) History Medical History History ICD Code Anxiety Back,Hip,and Knee pain Broken bones Gall bladder problems Nerve disease Osteoporosis Psoriasis Thyroid disorder Measles Chicken pox Transfusions Surgical History Surgery Date(Month/Year) cholecystectomy
--- OUTSIDE RECORDS SUMMARY | 2025-02-24 14:43 | XMS_ITS | Clinical Summary ---
Author Organization [facility] 299 [facility] Address [address] [place] [address] Phone Care Team Providers Care Product Management Analyst Name Role Phone VietkatyaanirudhBlayne rausch Primary Care Provider [phone] Medications omeprazole (PriLOSEC) [address] capsule TAKE 1 CAPSULE BY MOUTH TWICE DAILY 60 capsule 8 5 Active Linzess 72 mcg capsuleIndication s:Constipation, unspecified constipation type TAKE 1 CAPSULE BY MOUTH DAILY 30 capsule 2 5 Active Encounters Date Type Department Care Team Description 01/21/2025 3:10 PM EST Lab Draw Station - [address] [address] Hyperlipidemia, unspecified; Hypothyroidism, unspecified 12/05/2024 Lab Requisition [facility] - Main Lab 299 [facility] [place] [address] Rody Jones Urinary tract infection, site not specified; Hematuria, unspecified from Last 3 Months Social History Tobacco Use Types Packs/Day Years Used Date Smoking Tobacco: Never Assessed Comments Unknown Sex and Gender Information Value Date Recorded Sex Assigned at Female 03/31/2024 11:15 AM EST Legal Sex Female 10:45 PM EST Gender Identity Female 03/31/2024 11:15 AM EST Sexual Orientation Straight 03/31/2024 11 :15 AM EST Last Filed Vital Signs Vital Sign Reading Time Taken Comments Blood Pressure - - Pulse - - Temperature - - Respiratory Rate - - Oxygen Saturation - - Inhaled Oxygen Concentration - - Weight 91.6 kg (202 lb) 05/06/2024 3:34 PM EDT Height 165.1 cm (5' 5 ) 05/06/2024 3:34 PM EDT Body Mass Index 33.61 05/06/2024 3:34 PM EDT Plan of Treatment Upcoming Encounters Date Type Department Care Team (Late st Contact Info) Description 04/03/2025 3:00 PM EST Office Visit Gastroenterology - [address] [facility] [address] [place] [phone] Marissa Grayson, YARELY 299 [facility] [address] [place] [address] Health Maintenance Due Date Last Done Comments DTaP,Tdap,and Td Vaccines (1 - Tdap) 06/13/1959 Pneumococcal Vaccine: 50+ Years (1 of 1 - PCV) 1990 RSV Immunization Adult Patients (1 - 1-dose 75+ series) 06/13/2015 Falls Risk Assessment 01/29/2022 Medicare Annual Wellness Visit 01/29/2022 Social Influencers of Health Screening 01/29/2022 Depression Screening 02/27/2024 COVID-19 Vaccine ( season) 2024 12/04/2022, 06/18/2021, 11/22/2020, Additional history exists Cholesterol Screening (Lipid Panel) 01/21/2030 01/21/2025, 07/09/2024 Osteoporosis Screening (Bone Density Screening) 10/17/2033 10/18/2023, 10/20/2020, 01/01/2018 Zoster Vaccines Completed 04/30/2022, 12/17/2021 Influenza Vaccine Completed 12/05/2024, , 11/20/2022, Additional history exists HIB Vaccines Aged Out No longer eligi ble based on patient's age to complete this topic HPV Vaccines Aged Out No longer eligi ble based on patient's age to complete this topic Hepatitis A Vaccines Aged Out No long er eligible based on patient's age to complete this topic Hepatitis B Vaccines Aged Out No long er eligible based on patient's age to complete this topic IPV Vaccines Aged Out No longer eligi ble based on patient's age to complete this topic MMR Vaccines Aged Out No longer eligi ble based on patient's age to complete this topic Meningococcal ACWY Vaccine Aged Out N o longer eligible based on patient's age to complete this topic Meningococcal B Vaccine Aged Out No l onger eligible based on patient's age to complete this topic RSV Immunization Patients Under 20 months Aged Out No longer eligible based on patient's age to complete this topic Varicella Vaccines Aged Out No longer eligible based on patient's age to complete this topic Procedures Procedure Name Priority Date/Time Associated Diagnosis Comments THYROID STIMULATING HORMONE Routine 01/21/2025 3:09 PM EST Hypothyroidism, unspecified LIPID PANEL WITH REFLEX TO DIRECT LDL Routine 01/21/2025 3:09 PM EST Hyperlipidemia, unspecified CREATINE KINASE Routine 01/21/2025 3:09 PM EST Hyperlipidemia, unspecified COMPREHENSIVE METABOLIC PANEL Routine 01/21/2025 3:09 PM EST Hyperlipidemia, unspecified URINALYSIS WITH REFLEX MICROSCOPIC Routine 12/05/2024 12:00 AM EDT Urinary tract infection, site not specified Hematuria, unspecified URINALYSIS WITH REFLEX MICROSCOPIC Routine 12/05/2024 12:00 AM EDT Urinary tract infection, site not specified Hematuria, unspecified CULTURE URINE Routine 12/05/2024 12:00 AM EDT Urinary tract infection, site not specified Hematuria, unspecified [facility] DEXA AXIAL SKELETON Routine 10/18/2023 12:04 PM EDT Age-related osteoporosis without current pathological fracture from Last 3 Months or Most Recently Relevant to Health Maintenance Results * (ABNORMAL) Lipid panel with reflex to direct LDL (01/21/2025 3:09 PM EST) Cholesterol 193 0 - 200 mg/dL 01/21/2025 8:03 PM EST [facility] Triglycerides 258(H) 0 - 150 mg/dL 01/21/2025 8:03 PM [facility] HDL 46 >=40 mg/dL 01/21/2025 8:03 PM [facility] LDL Calculated 95 0 - 100 mg/dL 01/21/2025 8:03 PM [facility] Comment:Estimated LDL Calcul ated using equation: Total cholesterol - HDL cholesterol - (Triglycerides/5) VLDL Cholesterol Rizwan 51.6 mg/dL 01/21/2025 8:03 PM [facility] Non HDL Chol. (LDL+VLDL) 147(H) <145 mg/dL 01/21/2025 8:03 PM [facility] Chol/HDL Ratio 4.2 0.0 - 4.4 01/21/2025 8:03 PM [facility] Blood Venipuncture / Unknown 01/21/2025 3:09 PM EST 01/21/2025 3:09 PM EST Justina Liu BREAKER UP LAB BLOOD ORDERABLES Fi nal Result [facility] [address] [place] [address], [place] [phone] * (ABNORMAL) Thyroid stimulating hormone (01/21/2025 3:09 PM EST) TSH 4.70(H) 0.40 - 4.00 mcIU/mL 01/21/2025 8:05 PM [facility] Blood Venipuncture / Unknown 01/21/2025 3:09 PM EST 01/21/2025 3:09 PM EST us Justina Liu BREAKER UP LAB BLOOD ORDERABLES Fi nal Result [facility] [address] [place] [address], [place] [phone] * Creatine kinase (01/21/2025 3:09 PM EST) Pathologist [facility] Total CK 72 34 - 145 unit/L 01/21/2025 8:03 PM [facility] Blood Venipuncture / Unknown 01/21/2025 3:09 PM EST 01/21/2025 3:09 PM EST Justina Liu BREAKER UP LAB BLOOD ORDERABLES Fi nal Result [facility] [address] [place] [address], * (ABNORMAL) Comprehensive metabolic panel (01/21/2025 3:09 PM EST) [facility] Sodium 141 133 - 145 mmol/L 01/21/2025 8:03 PM [facility] Potassium 4.2 3.5 - 5.5 mmol/L 01/21/2025 8:03 PM [facility] Chloride 101 96 - 110 mmol/L 01/21/2025 8:03 PM [facility] CO2 32 21 - 32 mmol/L 01/21/2025 8:03 PM [facility] Anion Gap 8 3 - 11 01/21/2025 8:03 PM [facility] Glucose 117(H) 70 - 100 mg/dL 01/21/2025 8:03 PM [facility] BUN 19 5 - 25 mg/dL 01/21/2025 8:03 PM [facility] Creatinine 0.74 0.50 - 1.10 mg/dL 01/21/2025 8:03 PM [facility] eGFR 80 >=60 mL/min/1. 73m2 01/21/2025 8:03 PM [facility] Comment:Calculation based on the Chronic Kidney Disease Epidemiology Collaboration (CKD-EPI) equation refit without adjustment for race. BUN/Creatinine Ratio 25.7 01/21/2025 8:03 PM [facility] Calcium 8.1(L) 8.5 - 10.5 mg/dL 01/21/2025 8:03 PM [facility] AST (SGOT) 20 10 - 42 unit/L 01/21/2025 8:03 PM [facility] ALT (SGPT) 12 10 - 60 unit/L 01/21/2025 8:03 PM [facility] Alkaline Phosphatase 83 42 - 121 unit/L 01/21/2025 8:03 PM [facility] Total Protein 6.4 6.0 - 8.0 g/dL 01/21/2025 8:03 PM [facility] Albumin 3.5 3.2 - 5.0 g/dL 01/21/2025 8:03 PM [facility] Total Bilirubin 0.3 0.0 - 1.4 mg/dL 01/21/2025 8:03 PM [facility] Blood Venipuncture / Unknown 01/21/2025 3:09 PM EST 01/21/2025 3:09 PM EST us Justina Liu BREAKER UP LAB BLOOD ORDERABLES Fi nal Result [facility] [address] [place] [address], * (ABNORMAL) Urinalysis with reflex microscopic (12/05/2024 12:00 AM EDT) Specific [place] Urine 1.004 1.003 - 1.030 LAB URINALYSIS - AUTOMATED METHOD 12/05/2024 6:36 PM EDT [facility] pH, Urine 7.0 5.0 - 8.0 pH LAB URINALYSIS - AUTOMATED METHOD 12/05/2024 6:36 PM [facility] Leukocytes, Urine Small(A) Negative LAB URINALYSIS - AUTOMATED METHOD 12/05/2024 6:36 PM [facility] Nitrite, Urine Negative Negative LAB URINALYSIS - AUTOMATED METHOD 12/05/2024 6:36 PM [facility] Protein, Urine Negative <=Trace mg/dL LAB URINALYSIS - AUTOMATED METHOD 12/05/2024 6:36 PM [facility] Glucose, Urine Negative Negative mg/dL LAB URINALYSIS - AUTOMATED METHOD 12/05/2024 6:36 PM [facility] Ketones, Urine Negative Negative mg/dL LAB URINALYSIS - AUTOMATED METHOD 12/05/2024 6:36 PM [facility] Urobilinogen, Urine 0.2 0.2 - 1.0 mg/dL LAB URINALYSIS - AUTOMATED METHOD 12/05/2024 6:36 PM [facility] Bilirubin, Urine Negative Negative LAB URINALYSIS - AUTOMATED METHOD 12/05/2024 6:36 PM [facility] Blood, Urine Negative Negative LAB URINALYSIS - AUTOMATED METHOD 12/05/2024 6:36 PM [facility] RBC, Urine 1.2 0 - 4 /HPF LAB URINALYSIS - AUTOMATED METHOD 12/05/2024 6:36 PM [facility] WBC, Urine 0.7 0 - 4 /HPF LAB URINALYSIS - AUTOMATED METHOD 12/05/2024 6:36 PM [facility] Squamous Epithelial, Urine 11 0 - 60 /LPF LAB URINALYSIS - AUTOMATED METHOD 12/05/2024 6:36 PM [facility] Bacteria, Urine Negative Negative /HPF LAB URINALYSIS - AUTOMATED METHOD 12/05/2024 6:36 PM [facility] Hyaline Casts, Urine 0.78 0 - 3 /LPF LAB URINALYSIS - AUTOMATED METHOD 12/05/2024 6:36 PM EDT [facility] Urine Urine specimen obtained by clean catch procedure / Unknown 12/05/2024 12/05/2024 4:46 PM EDT [facility] LAB URINE ORDERABLES Final Resul t Performing Organization Address City/[facility]/ZIP Co de Phone Number [facility] [address] [place] [address], [place] [phone] * Culture urine (12/05/2024 12:00 AM EDT) Culture, Urine No growth 12/06/2024 11:09 AM EDT [facility] Urine Urine specimen obtained by clean catch procedure / Unknown 12/05/2024 12/05/2024 4:46 PM EDT [facility] LAB MICROBIOLOGY - GENERAL ORDER LENORA Final Result Performing Organization Address [facility]/ZIP Co de Phone Number [facility] [address] [place] [address], [place] [phone] * NANCY DEXA AXIAL SKELETON (10/18/2023 12:04 PM EDT) Anatomical Region Laterality Modality Mammography 10/18/2023 10:5 9 AM EDT Narrative 10/18/2023 12:04 PM EDT [facility] Diagnostic Imaging Department [address] [place] [address] Patient: TAM ROWAN/Age/Sex: 1940 - 83 - F Unit#: [id number] Location/Status: SPDIMAM/REG CLI Mnemonic[facility] Ordering Physician: YVON HARVEY MD Nancy Dexa Axial Skeleton - 10/18/23 - 1136 Report Status:Signed HISTORY: The patient is an 83-year-old postmenopausal female with clinical concern for metabolic bone disease. FINDINGS: Dual energy x-ray absorptiometry of the lumbar spine and femurs is performed. The mean bone mineral density at L1-L4 is 0.858 gm/cm2 which is 73% of that of young normals and 83% of that of age matched controls. This yields a T-score of -2.7 and a Z-score of -1.5 which is diagnostic of osteoporosis. The mean bone mineral density of the femurs bilaterally is 0.747 gm/cm2 which is 74% of that of young normals and 94% of that of age matched controls. This yields a T-score of -2.1 and a Z-score of -0.4 which is diagnostic of osteopenia. IMPRESSION: 1. Osteoporosis. There has been an increase of 5.8% in bone mineral density in the lumbar spine since the prior examination of 10/20/2020. There has been a decrease of 6.2% in bone mineral density in the right femur and an increase of 3.5% in bone mineral density in the left femur. 2. FRAX analysis yields a 10-year probability of major osteoporotic fracture of 30.0% and a 10-year probability of hip fracture of 10.4%. Code 52742 Dictating Physician: GT CHRISTIAN MD Electronically Signed by: GT CHRISTIAN MD Dic Date/Time: 10/18/23 1156 Sign date/Time: 10/18/23 1204 Procedure Note Gt Christian MD - 12/12/2023 [facility] Diagnostic Imaging Department [address] [place] [id number] Patient: ROWANTAM /Age/Sex: 1940 - 83 - F Unit#: [id number] Location/Status: SPDIMAM/REG CLI Mnemonic[facility] Ordering Physician: YVON HARVEY MD Nancy Dexa Axial Skeleton - 10/18/23 - 1136 Report Status:Signed HISTORY: The patient is an 83-year-old postmenopausal female withclinical concern for metabolic bone disease. FINDINGS: Dual energy x-ray absorptiometry of the lumbar spine and femursis performed. The mean bone mineral density at L1-L4 is 0.858 gm/cm2 which is73% of that of young normals and 83% of that of age matched controls. Thisyields a T-score of -2.7 and a Z-score of -1.5 which is diagnostic ofosteoporosis. The mean bone mineral density of the femurs bilaterally is 0.747 gm/ad8ymevx is 74% of that of young normals and 94% of that of age matched controls.This yields a T-score of -2.1 and a Z-score of -0.4 which is diagnostic of osteopenia. IMPRESSION: 1. Osteoporosis. There has been an increase of 5.8% in bone mineraldensity in the lumbar spine since the prior examination of 10/20/2020. There has topher decrease of 6.2% in bone mineral density in the right femur and anincrease of 3.5% in bone mineral density in the left femur. 2. FRAX analysis yields a 10-year probability of major osteoporoticfracture of 30.0% and a 10-year probability of hip fracture of 10.4%. Code 82483 Dictating Physician: GT CHRISTIAN MD Electronically Signed by: GT CHRISTIAN MD Dic Date/Time: 10/18/23 1158 Sign date/Time: 10/18/23 1204 Yvon Harvey MD IMG BI PROCEDURES Final Result from Last 3 Months or Most Recently Relevant to Health Maintenance Insurance [place] Member Subscriber Plan / Payer (Ef fective 2024-Present) Name:TAM ROWAN Relation to Subscriber:Self Name:Tam Rowan Payer ID:[id number] Group ID:Not on file Type:Not on file Address: [facility] [employer] ATTN:CLAIMS [address] [place] [address] [employer] MEDICARE Advance Directives Documents on File Type Date Recorded Patient Composing Room Supervisor Expl anation Health Care Decision (hx) 11/24/2013 AD MURGUIA DIRECTIVE Health Care Decision (hx) 11/24/2013 AD MURGUIA DIRECTIVE Health Care Decision (hx) 11/24/2013 AD MURGUIA DIRECTIVE Health Care Decision (hx) 11/24/2013 AD MURGUIA DIRECTIVE Health Care Decision (hx) 11/24/2013 AD MURGUIA DIRECTIVE Health Care Decision (hx) 11/24/2013 AD MURGUIA DIRECTIVE Health Care Decision (hx) 11/24/2013 AD MURGUIA DIRECTIVE Health Care Decision (hx) 11/24/2013 AD MURGUIA DIRECTIVE Health Care Decision (hx) 11/24/2013 AD MURGUIA DIRECTIVE Health Care Decision (hx) 11/24/2013 AD MURGUIA DIRECTIVE Health Care Decision (hx) 11/24/2013 AD MURGUIA DIRECTIVE Care Teams Product Management Analyst Relationship Specialty Start Date End Date Blayne Whitaker DO [address] [place] [phone] PCP - General Internal Medicine 03/21/24
== END 2025-02-24 11:24 | disposition home or self-care (01) ==
LOC: HO.HSM 10:52
PROVIDERS: PCP Internal Medicine; Referring Provider Internal Medicine; Visit Provider Psychiatry & Neurology Neurology
DX: M79.7 Fibromyalgia (principal); G25.81 Restless legs syndrome; G47.01 Insomnia due to medical condition; G50.0 Trigeminal neuralgia
CPT/HCPCS: 99214

== ENCOUNTER → 2025-02-24 10:51 | Outpatient (BNVA) | payer OTHER, SELFPAY | PROVIDERS: PCP Internal Medicine; Referring Provider Internal Medicine; Visit Provider Psychiatry & Neurology Neurology | DX: M79.7 Fibromyalgia (principal); G25.81 Restless legs syndrome; G50.0 Trigeminal neuralgia; G47.01 Insomnia due to medical condition | CPT/HCPCS: 99212 ==